=== PATIENT | female | born 1975 | race Two or more races ===

== ENCOUNTER → 2024-08-10 | Outpatient (CLI) | payer BC, SELFPAY ==
[2024-08-11 12:25] LABS: BVAG Candida Negative (Negative); Bacterial Vaginosis Markers Negative (Negative); Candida glabrata Negative (Negative); Candida krusei PCR Negative (Negative); Trichomonas Negative (Negative)
== END | disposition home or self-care (01) ==
LOC: SLDO 14:21
PROVIDERS: Referring Provider Physician Assistant Medical; Visit Provider Physician Assistant Medical
DX: B37.89 Other sites of candidiasis (principal); N76.0 Acute vaginitis; A59.01 Trichomonal vulvovaginitis
CPT/HCPCS: 81514

== ENCOUNTER → 2024-09-13 | Outpatient (CLI) | payer BC, SELFPAY ==
--- NOTE | 2024-09-13 13:35 | XR_ITS ---
Examination: Screening digital mammography, bilateral Computer aided detection 3-D breast Tomosynthesis, bilateral Date and time of exam: 10/11/2024, 1:37 PM Comparisons: 09/03/2021 Indications: Screening Technique: Nonmagnified MLO, CC views of the breasts to been obtained, reconstructed from 3-D Tomosynthesis images. R2 computer aided detection program utilized for evaluation of suspicious masses and/or abnormal calcifications. 3-D Tomosynthesis images obtained. Technologist: Findings: There are scattered areas of fibroglandular density. Bilateral subpectoral saline implants appear intact. No evidence of abnormal masses or suspicious calcifications. Impression: BI-RADS category 2: Benign findings Recommend 1 year follow-up mammogram
== END | disposition home or self-care (01) ==
PROVIDERS: Referring Provider Physician Assistant Medical; Visit Provider Physician Assistant Medical
DX: Z12.31 Encounter for screening mammogram for malignant neoplasm of breast (principal); R92.323 Mammographic fibroglandular density, bilateral breasts; R92.1 Mammographic calcification found on diagnostic imaging of breast
CPT/HCPCS: 77063; 77067

== ENCOUNTER → 2024-10-30 | Outpatient (CLI) | payer BC, SELFPAY ==
--- NOTE | 2024-10-30 09:24 | XR_ITS ---
Examination: PA lateral chest 2 views TECHNIQUE: Upright PA lateral chest 2 views Exam date and time: October 30, 2024 1045 hours Comparison May 26, 2021 INDICATIONS: Coughing transabdominal beginning one month ago. FINDINGS: Mild pneumonia left base obscuring detail left hemidiaphragm Normal heart size Right lung clear IMPRESSION: Mild pneumonia left base
[2024-10-30 12:33] LABS: Collection Type, Urine Clean Catch
[2024-10-30 13:19] LABS: Ferritin 34 ng/mL (7.3-270.7)
[2024-10-30 13:21] LABS: Alanine Aminotransferase 18 U/L (10-49); Albumin, Serum 4.2 gm/dL (3.5-5.0); Alkaline Phosphatase 51 U/L (46-116); Anion Gap 7 (7-16); Aspartate Amino Transferase 20 U/L (0-34); BUN/Creatinine Ratio 18 Ratio (12-20); Bilirubin,Total 0.5 mg/dL (0.3-1.2); Blood Urea Nitrogen 14 mg/dL (9-23); Calcium 9.3 mg/dL (8.3-10.6); Calcium (Corrected) 9.3 mg/dL (8.5-10.1); Carbon Dioxide 26.7 mMol/L (20.0-31.0); Cardiac Risk Estimate 3.5 RATIO (3.7-5.6); Chloride 112 mMol/L (98-107); Cholesterol 143 mg/dL (132-200); Creatinine (Component) 0.8 mg/dL (0.6-1.3); Globulin 2.1 gm/dL (2.3-3.5); Glucose 100 mg/dL (74-106); HDL Cholesterol 41 mg/dL (40-60); LDL Cholesterol,Calculated 87 mg/dL (0-130); Osmolality,Calculated 291 (275-295); Sodium 146 mMol/L (136-145); Thyroid Stimulating Hormone 1.39 uIU/mL (0.55-4.78); Total Protein 6.3 gm/dL (5.7-8.2); Triglycerides 77 mg/dL (30-150); Vitamin B12 197 pg/mL (211-911); Vitamin D 25 Hydroxy Total 25.2 ng/mL (7.3-40.2); eGFR > 60 See Note
[2024-10-30 13:34] LABS: Bilirubin,Urine Negative (Negative); Blood,Urine Trace (Negative); Clarity,Urine Clear (Clear/Hazy); Color,Urine Yellow (Lt Yel-Yel); Glucose, Urine Negative (Negative); Ketones,Urine Negative (Negative); Leukocyte Esterase,Urine Negative (Negative); Nitrite,Urine Negative (Negative); PH,Urine 5.5 (5.0-7.0); Protein,Urine Trace (Neg - Trace); RBC,Urine 5 /hpf (0-3); Specific Gravity,Urine 1.033 (1.001-1.035); Squamous Epithelial Cell,Urine 4 /hpf (0-5); Urobilinogen,Urine Negative mg/dL (0.0-1.0); WBC,Urine 1 /hpf (0-5)
== END | disposition home or self-care (01) ==
LOC: CDIM 09:11 → COPL 12:02
PROVIDERS: PCP Internal Medicine; Referring Provider Internal Medicine; Visit Provider Internal Medicine
DX: Z00.00 Encounter for general adult medical examination without abnormal findings (principal); J18.9 Pneumonia, unspecified organism
CPT/HCPCS: 36415; 71046; 80053; 80061; 81001; 82306; 82607; 82728; 84443